=== PATIENT | female | born 1990 | race Caucasian/White ===

== ENCOUNTER 2017-07-21 09:20 | Emergency (ER) | payer SELFPAY ==
[~2017-07-21] VITALS: Ht 165.1 cm; Wt 65.3 kg
[~2017-07-21 09:20] MED LIST: MACROBID100 M1 PO; ZOFRAN ODT4 MG SL
[2017-07-21] MEDS ORDERED: SEPTDS PO (09:40)
== END 2017-07-21 11:48 | disposition left against medical advice (07) ==
LOC: ED 09:20
DX: L03.113 Cellulitis of right upper limb (principal)

== ENCOUNTER 2017-10-09 14:56 | Emergency (ER) | payer MEDICAID ==
[~2017-10-09] VITALS: Ht 165.1 cm; Wt 66.7 kg
[~2017-10-09 14:56] MED LIST changes: +SEPTDS PO
[2017-10-09 16:01] LABS: BASO % 0.2 % (0.0-1.0); EOS % 0.7 % (1.0-4.0); HEMATOCRIT 35.6 % (37.0-47.0); HEMOGLOBIN 12.2 g/dl (12.0-16.0); LYMPH # 1.1 10*3/uL (1.3-4.4); LYMPH % 24.4 % (27.0-41.0); MEAN CELL VOLUME 87.3 fl (81.0-99.0); MEAN CORPUSCULAR HGB 29.9 pg (27.0-31.0); MEAN CORPUSCULAR HGB CONC 34.3 g/dl (33.0-37.0); MEAN PLATELET VOLUME 10.5 fl (9.6-12.3); MONO # 0.4 10*3/uL (0.1-1.0); MONO % 8.1 % (3.0-9.0); NEUT # 2.9 10*3/uL (2.3-7.9); NEUT % 66.4 % (47.0-73.0); PLATELET COUNT AUTOMATED 99 10*3/uL (130-400); RED BLOOD COUNT 4.08 10*6/uL (4.10-5.10); RED CELL DISTRI WIDTH 13.6 % (0-14.5); WHITE BLOOD COUNT 4.4 10*3/uL (4.8-10.8)
[2017-10-09 16:20] LABS: ALBUMIN 3.3 gm/dl (3.1-4.5); ALKALINE PHOSPHATASE 37 U/L (45-117); BUN 7 mg/dl (7-24); CHLORIDE 107 mmol/L (98-107); CREATININE 0.51 mg/dL (0.55-1.02); LIPASE 68 U/L (73-393); SGOT/AST 84 IU/L (3-35); SGPT/ALT 144 U/L (12-78); SODIUM 138 mmol/L (136-145); TOTAL PROTEIN 7.3 gm/dL (6.4-8.2)
[2017-10-09 16:24] LABS: BILIRUBIN NEGATIVE (NEGATIVE); BLOOD NEGATIVE (NEGATIVE); CLARITY SL CLOUDY (CLEAR); COLOR YELLOW (YELLOW); GLUCOSE NEGATIVE (NEGATIVE); KETONE 1+ (NEGATIVE); LEUKO ESTERASE NEGATIVE (NEGATIVE); NITRITE NEGATIVE (NEGATIVE); PH 6.5 (5.0-9.0); SPECIFIC GRAVITY 1.015 (1.005-1.030); UROBILINOGEN 0.2 E.U./dl (0.2-1.0)
[2017-10-09 16:44] LABS: B-hCG (QUALITATIVE) POSITIVE (NEGATIVE)
[2017-10-09 16:46] LABS: BACTERIA 3+; EPITHELIAL CELLS 15-20; MUCOUS TRACE; RBC 0-2 rbc/hpf (0-2)
[2017-10-09] MEDS ORDERED: DICLEGIS DR 101 EACH PO (17:01)
[2017-10-09] MEDS ORDERED: PRENATAL ONE D1 EACH PO (17:01)
== END 2017-10-09 17:10 | disposition home or self-care (01) ==
LOC: ED 14:56
PROVIDERS: Physician Assistant
DX: O26.891 Other specified pregnancy related conditions, first trimester (principal); R10.30 Lower abdominal pain, unspecified; R10.2 Pelvic and perineal pain; O99.331 Smoking (tobacco) complicating pregnancy, first trimester; F17.200 Nicotine dependence, unspecified, uncomplicated; Z88.5 Allergy status to narcotic agent; Z3A.01 Less than 8 weeks gestation of pregnancy

== ENCOUNTER 2017-12-17 13:49 | Emergency (ER) | payer OTHER ==
[~2017-12-17] VITALS: Ht 162.5 cm; Wt 70.3 kg
[~2017-12-17 13:49] MED LIST changes: +DICLEGIS DR 101 EACH PO; +PRENATAL ONE D1 EACH PO
[2017-12-17 14:13] LABS: BILIRUBIN NEGATIVE (NEGATIVE); BLOOD 2+ (NEGATIVE); CLARITY SL CLOUDY (CLEAR); COLOR YELLOW (YELLOW); GLUCOSE NEGATIVE (NEGATIVE); KETONE NEGATIVE (NEGATIVE); LEUKO ESTERASE NEGATIVE (NEGATIVE); NITRITE NEGATIVE (NEGATIVE); PH 6.5 (5.0-9.0); SPECIFIC GRAVITY 1.015 (1.005-1.030); UROBILINOGEN 0.2 E.U./dl (0.2-1.0)
[2017-12-17 14:40] LABS: BACTERIA 1+; EPITHELIAL CELLS TNTC; RBC TNTC rbc/hpf (0-2); WBC 0-2 wbc/hpf (0-5)
[2017-12-17 14:55] LABS: EOS # 0.1 10*3/uL (0.0-0.4); EOS % 1.2 % (1.0-4.0); HEMATOCRIT 33.4 % (37.0-47.0); HEMOGLOBIN 11.7 g/dl (12.0-16.0); LYMPH # 1.1 10*3/uL (1.3-4.4); LYMPH % 20.3 % (27.0-41.0); MEAN CELL VOLUME 88.1 fl (81.0-99.0); MEAN CORPUSCULAR HGB 30.9 pg (27.0-31.0); MEAN PLATELET VOLUME 10.4 fl (9.6-12.3); MONO # 0.4 10*3/uL (0.1-1.0); MONO % 7.4 % (3.0-9.0); NEUT # 3.7 10*3/uL (2.3-7.9); NEUT % 70.7 % (47.0-73.0); PLATELET COUNT AUTOMATED 107 10*3/uL (130-400); RED BLOOD COUNT 3.79 10*6/uL (4.10-5.10); RED CELL DISTRI WIDTH 13.5 % (0-14.5); WHITE BLOOD COUNT 5.2 10*3/uL (4.8-10.8)
[2017-12-17 15:11] LABS: ALBUMIN 2.9 gm/dl (3.1-4.5); ALKALINE PHOSPHATASE 40 U/L (45-117); BUN 8 mg/dl (7-24); CHLORIDE 107 mmol/L (98-107); CREATININE 0.44 mg/dL (0.55-1.02); POTASSIUM 3.8 mmol/L (3.5-5.1); SGOT/AST 75 IU/L (3-35); SGPT/ALT 117 U/L (12-78); SODIUM 137 mmol/L (136-145)
[2017-12-17] MEDS ORDERED: AMINOPHYLLIN200 MG PO (16:11)
== END 2017-12-17 16:17 | disposition home or self-care (01) ==
LOC: ED 13:49
PROVIDERS: Physician Assistant
DX: O23.42 Unspecified infection of urinary tract in pregnancy, second trimester (principal); Z90.49 Acquired absence of other specified parts of digestive tract; Z79.899 Other long term (current) drug therapy; Z88.5 Allergy status to narcotic agent; Z3A.17 17 weeks gestation of pregnancy

== ENCOUNTER 2019-01-13 16:15 | Inpatient (IN) | payer OTHER ==
[~2019-01-13] VITALS: Ht 162.6 cm; Wt 63.6 kg
--- NOTE | ~2019-01-13 | EKG ---
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
[~2019-01-13 16:15] MED LIST changes: +AMINOPHYLLIN200 MG PO
--- NOTE | 2019-01-13 17:40 | NUR ---
PATIENT MEETS [facility]. CINA=18,CIWA(B)=26. PATIENT WANTS TO FOLLOW UP WITH [facility] FOR HER AFTERCARE PLAN. MARI OJEDA B.A. EDI CONSULTANT
--- NOTE | 2019-01-13 18:00 | NUR ---
A 28, admitted to , under the services of ROSALIA Maxwell DO with a diagnosis of Opiate Withdrawal. Chief complaint is Substance Abuse. Patient arrived via ambulatory from [place]. Monitor applied. Initial assessment completed. Vital signs taken and recorded. ROSALIA MAXWELL DO notified of admission to the unit. Orders received. See assessment for past medical history, medications and allergies. Patient and/or family oriented to unit. [address] visitation policy reviewed. Patient does not take prescription medications. Clothing/patient valuable form completed. CASEY SNEED
--- NOTE | 2019-01-13 18:19 | NUR ---
Notified Dr. Alcantara that lab was unable to obtain venous access. Patient states that the last time she had an IV (the of her son 7 mos ago) an anesthesiologist obtained a site in her neck.
[2019-01-13 20:00] VITALS: BP 114/80
--- NOTE | 2019-01-13 20:30 | NUR ---
CALL PHARM TO REDOSE SUBUTEX D/T URINES JUST NOW BEING SENT OUT AND TO RE-EVALUATE DOXY TABLET DUE TO 3 DOSES ARE PLACED FOR TOMORROW WHEN ITS ONLY Q12HR. MICHEL STATES HE WILL LOOK AT IT
[2019-01-13 20:49] LABS: BILIRUBIN 1+ (NEGATIVE); BLOOD TRACE-INTACT (NEGATIVE); CLARITY SL CLOUDY (CLEAR); COLOR YELLOW (YELLOW); GLUCOSE NEGATIVE (NEGATIVE); KETONE TRACE (NEGATIVE); LEUKO ESTERASE NEGATIVE (NEGATIVE); NITRITE NEGATIVE (NEGATIVE); SPECIFIC GRAVITY >= 1.030 (1.005-1.030)
[2019-01-13 20:55] LABS: URINE AMPHETAMINES < 1000 (1000ng/ml); URINE BARBITURATES < 200 (200ng/ml); URINE BENZODIAZEPINES < 200 (200ng/ml); URINE CANNABINOIDS (THC) < 50 (50ng/ml); URINE COCAINE < 300 (300ng/ml); URINE METHADONE < 300 (300ng/ml); URINE OPIATES > 300 (300ng/ml)
[2019-01-13 20:56] LABS: MUCOUS 3+
[2019-01-13 20:57] LABS: URINE PHENCYCLIDINE < 25 (25ng/ml); WBC 0-2 wbc/hpf (0-5)
--- NOTE | 2019-01-13 21:07 | NUR ---
PATIENT STATED THAT SHE DOES NOT WANT SUBUTEX AT THIS TIME STATES, "WHEN I TAKE IT RIGHT AFTER I STOP DRUGS, MY WITHDRAWALS ARE MORE INTENSE AND I JUST DON'T FEEL COMFORTABLE TAKING IT AT THIS TIME."
--- NOTE | 2019-01-13 22:01 | NUR ---
PATIENT MEDICATED FOR C/O WITHDRAWAL SYMPTOMS, SEE EMAR. WILL MONIOTR. NICOTINE PATCH PLACED TO RIGHT UPPER SHOULDER.
--- NOTE | 2019-01-13 23:01 | NUR ---
PRNs GIVEN FOR WITHDRAWAL SYMPTOMS WERE EFFECTIVE. NO COMPLAINTS
[2019-01-14] VITALS: BP 115/74
--- NOTE | 2019-01-14 00:53 | NUR ---
24 HR chart check completed.
--- NOTE | 2019-01-14 05:15 | NUR ---
PATIENT MEDICATED WITH PRNs AVAILABLE FOR C/O WITHDRAWAL SYMPTOMS, SEE EMAR. WILL MONITOR.
--- NOTE | 2019-01-14 07:21 | NUR ---
CHET BOSS [id number] Please refer to the physician's history and physical for past medical history, comorbid conditions, and allergies. Diagnosis: OPIATE WITHDRAWAL Salvador Score: 21,LOW OR NO RISK WOUND DESCRIPTIONS: Wound Number: 1 Location of the wound: right medial aspect of upper thigh Thickness: Partial Size: 0.4cm x 0.6cm x 0.1cm Tunneling: none Undermining: none Sinus Tract: none Presence of Exudate: none Amount: None Color: Red Odor: None Periwound Skin Appearance: Firmness 3.0cm x 2.5cm x 0.1cm, erythema, slight warmth Wound edges: approximated Pain (associated with wound): tender to touch and patient stated it can be tender when she walks How does patient state this happened? Pt stated this happened a couple days ago after she injected. Wound Number 2 & 3. 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 No redness surrounding areas no drainage at time of assessment. Surface the patient is resting on: Position Pro SKIN PREVENTION RECOMMENDATION: 1. Pressure redistribution support surface as appropriate 2. Elevate heels 3. Remove boots/TEDS every shift and reapply 4. Head of bed 30 degrees as tolerated 5. Assess nutrition and hydration 6. Manage moisture 7. Avoid the use of containment devices while in bed 8. Use absorptive products on surfaces limit layers of linens on bed 9. Turn and reposition every 1-2 hours in bed and every 1 hour in chair as tolerated 10. Weight shifts every 15 minutes while up in chair 11. Offloading with pillows or device to keep heels elevated off bed 12. Monitor skin at least every shift 13. Inspect under medical devices twice a day WOUND TREATMENT RECOMMENDATIONS: Warm compresses noted to right upper thigh. Imaging studies to right upper thigh to rule out abscess.
[2019-01-14 08:00] VITALS: BP 113/76
--- NOTE | 2019-01-14 08:57 | NUR ---
Patient states she is afraid to take Subutex because it puts her in full blown withdrawal.
--- NOTE | 2019-01-14 09:11 | NUR ---
Dr. Alcantara notified of wound care recommendations.
--- NOTE | 2019-01-14 12:19 | NUR ---
PR STAFF SPOKE WITH PATIENT CONCERNING HER AFTERCARE PLAN. PATIENT WANTS TO GO TO [facility] IN [place] FOR OUTPATIENT TREATMENT. PR STAFF REPORTED TO PATIENT THAT [facility] APPOINTMENT WOULD NOT BE UNTIL THURSDAY, February AT 9:30AM. PATIENT STILL WANTS TO KEEP THE APPOINTMENT. PR STAFF WILL PROVIDE PATIENT WITH A LIST OF AA/NA MEETINGS IN HER LOCAL AREA IN THE MEANTIME. MARI OJEDA B.A. TRUCK AND TRANSPORT MECHANIC
--- NOTE | 2019-01-14 12:30 | NUR ---
PRN Bentyl given for patient c/o abdominal cramping, Zofran given for c/o nausea, Robaxin given for c/o muscle spasms, Tylenol given for c/o achyness. Donna christine and crackers also given for stomach upset. Will monitor.
--- NOTE | 2019-01-14 13:15 | NUR ---
Prn Robaxin, Bentyl, Vistaril, Zofran and Tylenol effective. Patient states she doesn't feel great, but better than she did. Will continue to monitor and nursing comfort measure given.
[2019-01-14 16:00] VITALS: BP 87/55
--- NOTE | 2019-01-14 19:05 | NUR ---
REPORT OBTAINED FROM AMAN. PATIENT NOTCBLY AGITATED/ANXIOUS, JUST MEDICATED WITH PRNs AVAILABLE BY PRIOR NURSE. RESP ARE ERND ON ROOM AIR. BED IS LOCKED IN LOWEST POSITION. CALL LIGHT WITHIN REACH.
--- NOTE | 2019-01-14 19:16 | NUR ---
PRN Bentyl given per patient request for c/o stomach cramps, Zofran given for c/o nausea, Motrin given for c/o achyness, Vistaril given for obvious signs and c/o anxiety. Patient is also diaphoretic. Will monitor.
--- NOTE | 2019-01-14 19:20 | NUR ---
PATIENT NOTABLY MORE CALM AT THIS TIME. SHOWN WHERE THE SHOWER ROOM WAS. PATIENT INQUIRED ABOUT VISITATION, INFORMED THEY ARE 9AM-9PM. STATED UNDERSTANDING
[2019-01-14 20:40] VITALS: BP 112/62
--- NOTE | 2019-01-14 21:57 | NUR ---
PATIENT REQUESTED PRN MEDICATIONS SOON THEY WERE DUE EVEN IF SHE WAS ASLEEP. PATIENT VOICED CONCERNS OF HER SYMPTOMS GETTING TO BAD TO CONTROL IF SHE DIDN'T GET THEM. NO SIGNS OR SYMPTOMS OF DISTRESS AT THIS TIME. RESPIRATIONS EASY NONLABOURED ON ROOM AIR.
--- NOTE | 2019-01-14 23:57 | NUR ---
PATIENT RESTING EYES CLOSED. NO SIGNS OR SYMPTOMS OF DISTRESS. RESPIRATIONS EASY NONLABORED ON ROOM AIR.
[2019-01-15] VITALS: BP 106/60
--- NOTE | 2019-01-15 03:03 | NUR ---
PRN MEDICATIONS GIVEN FOR, MUSCLE SPASMS, PAIN AND NAUSEA. VOICES NO FURTHER CONCERNS. RESPIRATIONS EASY NONLABORED ON ROOM AIR. NO SIGNS OR SYMPTOMS OF DISTRESS.
--- NOTE | 2019-01-15 03:35 | NUR ---
PRN MEDICATION EFFECTIVE. PATIENT SLEEPING WITH NO SIGNS OR SYMPTOMS OF DISTRESS AT THIS TIME.
--- NOTE | 2019-01-15 03:55 | NUR ---
LYING IN BED EYES CLOSED, NO SIGNS OR SYMPTOMS OF DISTRESS. RESPIRATIONS EASY NONLABORED ON ROOM AIR.
--- NOTE | 2019-01-15 04:05 | NUR ---
24 HR chart check completed.
--- NOTE | 2019-01-15 05:10 | NUR ---
PATIENT REFUSED FOR BLOOD TO BE DRAWN FROM LABS.
--- NOTE | 2019-01-15 07:50 | NUR ---
Pt is upset demanding. States she is nauseated and having abdominal pain. Upset over subutex tapering, when it was started, states she wanted to wait 24 hours before starting subutex but it was marked that she refused it. States she couldn't take it it would have made withdrawal worse due to having heroin still in system. Wanting pain meds and zofran. Pt had these at 3 am. I explained to pt that she could have them again at 9 am. Pt is upset over this, demanding that I call the Dr to get her something for stomach. I spoke with Dr. Mckeon and he states he will speak with pt. I medicated pt with tylenol. Will continue to monitor.
[2019-01-15 08:00] VITALS: BP 132/100
[2019-01-15 08:47] LABS: BASO % 0.4 % (0.0-1.0); EOS # 0.1 10*3/uL (0.0-0.4); EOS % 2.2 % (1.0-4.0); HEMATOCRIT 44.1 % (37.0-47.0); HEMOGLOBIN 14.6 g/dl (12.0-16.0); LYMPH # 1.5 10*3/uL (1.3-4.4); LYMPH % 31.9 % (27.0-41.0); MEAN CELL VOLUME 90.7 fl (81.0-99.0); MEAN CORPUSCULAR HGB CONC 33.1 g/dl (33.0-37.0); MEAN PLATELET VOLUME 9.9 fl (9.6-12.3); MONO # 0.5 10*3/uL (0.1-1.0); MONO % 10.1 % (3.0-9.0); NEUT # 2.5 10*3/uL (2.3-7.9); NEUT % 55.2 % (47.0-73.0); PLATELET COUNT AUTOMATED 163 10*3/uL (130-400); RED BLOOD COUNT 4.86 10*6/uL (4.10-5.10); WHITE BLOOD COUNT 4.5 10*3/uL (4.8-10.8)
--- NOTE | 2019-01-15 08:47 | NUR ---
One time dose of phenergan given.
--- NOTE | 2019-01-15 09:10 | NUR ---
All available PRN's given to pt, pt states she is still experiencing nausea and abdominal pain/cramping. See emar for prn's given.
[2019-01-15 09:12] LABS: ALBUMIN 3.5 gm/dl (3.1-4.5); ALKALINE PHOSPHATASE 47 U/L (45-117); BUN 16 mg/dl (7-24); CHLORIDE 114 mmol/L (98-107); CREATININE 0.87 mg/dL (0.55-1.02); LIPASE 147 U/L (73-393); POTASSIUM 4.4 mmol/L (3.5-5.1); SGOT/AST 114 IU/L (3-35); SGPT/ALT 183 U/L (12-78); SODIUM 145 mmol/L (136-145); TOTAL PROTEIN 8.1 gm/dL (6.4-8.2)
--- NOTE | 2019-01-15 10:55 | NUR ---
Pt up in shower when Dr. Dumont was rounding.
--- NOTE | 2019-01-15 14:00 | NUR ---
Dr. Dumont in to see pt. Pt is in shower again.
--- NOTE | 2019-01-15 14:12 | NUR ---
Notified Dr. Dumont that pt is back in room.
--- NOTE | 2019-01-15 14:28 | NUR ---
Medicated with phenergan, reglan, bentyl and robaxin. Explained new orders to pt for these meds. Pt had small liquid emesis prior to meds being given.
--- NOTE | 2019-01-15 15:15 | NUR ---
Pt is currently sleeping when we rounded for bedside report. No distress noted.
[2019-01-15 16:00] VITALS: BP 134/77
--- NOTE | 2019-01-15 17:19 | NUR ---
NOTIFIED REGARDING PT ACTIVELY VOMITING AT THIS TIME. NEW ORDERS RECEIVED.
--- NOTE | 2019-01-15 17:44 | NUR ---
PT GIVEN PO BENTYL, ATIVAN, ZOFRAN AND REGLAN PER ORDER FOR C/O ABD CRAMPS AND NAUSEA/VOMITING. WILL MONITOR EFFECTIVENESS.
--- NOTE | 2019-01-15 18:45 | NUR ---
Patient resting. Responding to scheduled medications with fewer complaints of nausea and pain.
--- NOTE | 2019-01-15 19:30 | NUR ---
WAS SLEEPING AWAKEND ABD CRAMPING AND VOMITING LARGE AMOUNT EMESIS.
--- NOTE | 2019-01-15 19:40 | NUR ---
SPOKE WITH PATIENT. VERY ANXIOUS, LAYING ACROSSED BED, CRYING "I CAN'T DO THIS ANYMORE. WHY WOULD THEY START MY SUBUTEX TAPER IN THE MIDDLE. I NEED MY SUBUTEX, I CAN'T WAIT UNTIL 2 AM".
--- NOTE | 2019-01-15 19:45 | NUR ---
CALLED DR. HAM AND NOTIFIED HIM OF CONDITION, ABOUT TAPER AND MEDICATION GIVEN AND PATIENT WILL LEAVE IF SHE DOESN'T GET HER SUBUTEX NOW. ORDER RECEIVED NOT CHANGING SUBUTEX BUT CAN GIVE VISTARIL AND PHENERGAN NOW. TO SPEAK WITH PATIENT ABOUT PLAN OF CARE.
--- NOTE | 2019-01-15 19:53 | NUR ---
SPOKE WITH PATIENT ABOUT DRShadi NOT CHANGING SUBUTEX BUT WILL BE ABLE TO GIVE VISTARIL AND PHENERGAN. PATIENT UPSET INSTANTLY GOT UP AND SAID I CAN'T DO THIS, WHY WOULD THEY START YOU ON TAPE IN THE MIDDLE OF IT. I SHOULD'VE JUST CHEEKED THE SUBUTEX AND JUST KEPT IT UNTIL I NEEDED IT. I'LL JUST GO GET THE SUBUTEX I NEED OFF THE STREET. I'M SORRY I GUESS I DID THIS TO MYSELF BUT I DIDN'T THINK THE DOCTORS WOULD DO THAT." TRIED TO CONVIENCE PATIENT TO STAY BUT SHE WOULD NOT. AMA PAPER SIGNED AND PATIENT PACKED HER BELONGINGS AND LEFT. CALLED DR. HAM AND QA MANAGER AND NOTIFIED THEM BOTH OF AMA.
== END 2019-01-15 19:53 | disposition left against medical advice (07) | DRG 894 ==
LOC: 4E 16:15
PROVIDERS: Student in an Organized Health Care Education/Training Program; ADMIT Internal Medicine
DX: F11.23 Opioid dependence with withdrawal (principal); F41.9 Anxiety disorder, unspecified; F31.9 Bipolar disorder, unspecified; K59.00 Constipation, unspecified; F13.239 Sedative, hypnotic or anxiolytic dependence with withdrawal, unspecified; Z90.49 Acquired absence of other specified parts of digestive tract; F17.200 Nicotine dependence, unspecified, uncomplicated; Z88.9 Allergy status to unspecified drugs, medicaments and biological substances; Z79.899 Other long term (current) drug therapy; E87.8 Other disorders of electrolyte and fluid balance, not elsewhere classified

== ENCOUNTER 2019-05-26 10:09 | Emergency (ER) | payer OTHER ==
[~2019-05-26] VITALS: Ht 165.1 cm; Wt 61.2 kg
[2019-05-26 10:46] LABS: BILIRUBIN 3+ (NEGATIVE); BLOOD 3+ (NEGATIVE); CLARITY CLOUDY (CLEAR); GLUCOSE TRACE (NEGATIVE); KETONE 1+ (NEGATIVE); LEUKO ESTERASE TRACE (NEGATIVE); NITRITE POSITIVE (NEGATIVE); SPECIFIC GRAVITY 1.025 (1.005-1.030)
[2019-05-26 10:49] LABS: HEMATOCRIT 37.3 % (37.0-47.0); HEMOGLOBIN 12.6 g/dl (12.0-16.0); MEAN CELL VOLUME 89.2 fl (81.0-99.0); MEAN CORPUSCULAR HGB 30.1 pg (27.0-31.0); MEAN CORPUSCULAR HGB CONC 33.8 g/dl (33.0-37.0); MEAN PLATELET VOLUME 11.3 fl (9.6-12.3); PLATELET COUNT AUTOMATED 116 10*3/uL (130-400); RED BLOOD COUNT 4.18 10*6/uL (4.10-5.10); RED CELL DISTRI WIDTH 14.9 % (0-14.5); WHITE BLOOD COUNT 3.6 10*3/uL (4.8-10.8)
[2019-05-26 10:55] LABS: COLOR BROWN (YELLOW)
[2019-05-26 10:56] LABS: RBC TNTC rbc/hpf (0-2)
[2019-05-26 11:02] LABS: ACT PARTIAL THROMBO TIME 34.3 SECONDS (20.0-32.1); INTERNATIONAL NORM RATIO 1.1 (2.0-3.5)
[2019-05-26 11:06] LABS: ALKALINE PHOSPHATASE 111 U/L (45-117); BUN 7 mg/dl (7-24); CHLORIDE 107 mmol/L (98-107); CREATININE 0.77 mg/dL (0.55-1.02); LIPASE 148 U/L (73-393); POTASSIUM 3.5 mmol/L (3.5-5.1); SGOT/AST 977 IU/L (3-35); SODIUM 140 mmol/L (136-145); TOTAL PROTEIN 7.5 gm/dL (6.4-8.2)
[2019-05-26 11:11] LABS: BETA-HCG, QUANT < 1.0 mIU/mL (1-3); SGPT/ALT 2164 U/L (12-78)
[2019-05-26 11:12] LABS: ATYPICAL LYMPHS 2 % (0-0); PLATELET SUFFICIENCY NORMAL (NORMAL); TOTAL CELLS COUNTED 100 #CELLS
[2019-05-26] MEDS ORDERED: PHENERGAN25 M3 PO (14:41)
[2019-05-27 08:09] LABS: HEPATITIS B SURFACE AG Negative (Negative)
[2019-05-27 08:44] LABS: HEPATITIS C VIRUS ANTIBODY >11.0 s/co (0.0-0.9)
== END 2019-05-26 14:48 | disposition left against medical advice (07) ==
LOC: ED 10:09
PROVIDERS: Emergency Medicine
DX: R11.2 Nausea with vomiting, unspecified (principal); R94.5 Abnormal results of liver function studies; R10.84 Generalized abdominal pain; R19.7 Diarrhea, unspecified; R42 Dizziness and giddiness; F17.200 Nicotine dependence, unspecified, uncomplicated; Z88.5 Allergy status to narcotic agent; Z90.49 Acquired absence of other specified parts of digestive tract

== ENCOUNTER 2019-05-28 09:32 | Inpatient (IN) | payer OTHER ==
[~2019-05-28] VITALS: Ht 165.1 cm; Wt 57.4 kg
--- NOTE | ~2019-05-28 | PR ---
[place], [place] PROGRESS NOTE [id number] UN[facility] #: [id number] ROOM: 521 DOCTOR: ARTEMIO BETANCOURT,DECEMBER BIRTHDATE: [birth year] DOS: 05/29/2019 SUBJECTIVE: The patient has a chief complaint of hepatitis A as well as hepatitis C, the hepatitis C is chronic, hepatitis A is acute. She continues to have lot of complaints of nausea and has gagged herself per nursing. She also continues to have generalized abdominal pain. LFTs are improving. Had no fevers overnight. No diarrhea. LABORATORY DATA: WBCs 3.7, platelets 120. BUN 8, creatinine 0.75. AST 137, ALT 671. Total bilirubin 11.5. All of these are showing improvement. Albumin 2.4. Prior CT of the abdomen and pelvis from the reviewed demonstrating splenomegaly, otherwise unremarkable. CURRENT MEDICATIONS: Lovenox, morphine, Zofran, Phenergan, Toradol. PHYSICAL EXAMINATION: VITAL SIGNS: Temperature 98.4, pulse 56, respirations 20, BP 120/87. GENERAL: A 28-year-old female, in moderate distress, complaining of nausea and dry heaves. HEAD, EYES, EARS, NOSE AND THROAT: Normocephalic, no thrush. NECK: Supple. LUNGS: Clear to auscultation bilaterally. Respirations even and unlabored. HEART: Regular rhythm. No murmur appreciated. ABDOMEN: With generalized tenderness, soft. EXTREMITIES: No edema or deformity or cyanosis. SKIN: Warm, dry, jaundiced. ASSESSMENT: Acute hepatitis A; chronic hepatitis C; history of IV drug abuse, currently receiving morphine here. She had a positive hepatitis A IgM on the . She has not received treatment yet for her hepatitis C. She did have positive opiates tox screen on 01/13/2019, though she stated to me last night she had no opiates since 2017. PLAN: At this point, we discussed yesterday about her getting treatment for her chronic hepatitis C that this would be a possibility as an outpatient after her hepatitis A has resolved and if she is able to remain drug free. At this point, continue supportive care for her hepatitis A. Her LFTs and bilirubin are improving. JOY ASIA ULLOA [place], [place] PROGRESS NOTE NAME: CHET BOSS UNIT #: [id number] ROOM: 521 DOCTOR: ARTEMIO BETANCOURTDECEMBER BIRTHDATE: [birth year] Alysa Steele MD CM:PNRUSSELL [id number] DECEMBER ARTEMIO BETANCOURT 05/29/19 1728 interface
--- NOTE | ~2019-05-28 | CON ---
[place], [place] REPORT OF CONSULTATION NAME[facility]OSS [id number] UNIT #: [id number] ROOM: 521 DOCTOR: ARTEMIO BETANCOURT,DECEMBER BIRTHDATE: [birth year] DOS: 05/28/2019 CHIEF COMPLAINT: Hepatitis A and hepatitis C. HISTORY OF PRESENT ILLNESS: The patient is a 28-year-old female who was admitted with 4-day history of nausea, vomiting and abdominal pain. She had also had diarrhea. The diarrhea has since improved. She was seen in the Emergency Room on the with AST of 977 and an ALT of 2164. Serology has come back positive for hepatitis A IgM. She also had a positive hepatitis C antibody. She does have chronic hepatitis C. She has a prior history of IV drug abuse and states that she has been clean since 2016. She did not have a tox screen done at the time of this admission. 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 ID is consulted for acute hepatitis A as well as hepatitis B. Her labs are improving. AST today is down to 254, ALT is down to 1089. Again, her symptom onset was 4 days ago. The abdominal pain this evening is somewhat better than it was at the time of admission. Nausea and vomiting has also improved somewhat and she is requesting ice cream and has been holding down clear liquids. She had fevers and chills at home. She measured her temperature up to 101. Max temperature since admission, 99.1. She had originally refused admission on 05/26 due to needing to take care of her child. The child has not been ill, only the stools have been a little loose, but other than that, he has not been ill. [facility] and [facility] him vaccinated. She states her [id number] was sick recently, but she states "I also eat out a lot." PAST MEDICAL AND SURGICAL HISTORY: As above as well as anxiety. She denies any other prior medical history, but bipolar disorder is documented on her chart. She also has previously had pancreatitis and status post cholecystectomy. SOCIAL HISTORY: She is a smoker, half pack per day since she was 18 years old. Rarely drinks 1 beer. Denies any ongoing illicit drug use. Again, states she has been clean since 2016. She did have a history of prior IV drug abuse and opiates. FAMILY MEDICAL HISTORY: Mother of Grayson's disease at age of 57. Father with no significant past medical history. ALLERGIES: States OPIATE AGONISTS; however, she has a history of opiate abuse. LABORATORY DATA: WBCs 3.8, platelets 128. BUN 5, creatinine 0.78, sodium 140, AST 254, ALT 1089. C-reactive protein less than 0.29. Ammonia less than 10, albumin 3.0, total bilirubin 13.3. Urine culture from the 12th is sterile. REVIEW OF SYSTEMS: As above in history of present illness. No rashes, has been jaundiced for the last few days. Further review of systems is unremarkable other than as previously documented. PHYSICAL EXAMINATION: VITAL SIGNS: Temperature 99.1, pulse 69, respirations 18, BP 103/62. [place], [place] REPORT OF CONSULTATION NAME: CHET BOSS UNIT #: [id number] ROOM: 521 DOCTOR: ARTEMIO BETANCOURTDECEMBER BIRTHDATE: [birth year] GENERAL: 28-year-old female, in no acute distress. HEAD, EYES, EARS, NOSE AND THROAT: Normocephalic. Pupils equal and round. No thrush. NECK: Supple. LUNGS: Clear to auscultation bilaterally. Respirations even and unlabored. HEART: Regular rhythm. No murmur appreciated. ABDOMEN: Soft, nondistended. Tender right upper quad. EXTREMITIES: No edema, deformity or cyanosis. SKIN: Warm, dry, jaundiced, has multiple tattoos to left upper extremity. ASSESSMENT: Acute hepatitis A superimposed on chronic hepatitis C. Her LFTs are improving as well as her symptoms are improving. PLAN: We discussed that receiving treatment at some point for her hepatitis C given that she is no longer after her acute hepatitis A results. If her tox screens are clean, she did have a tox screen in the computer from January which was positive for opiates, continue supportive treatment. We discussed pathogenesis and transmissibility of hepatitis A. Thank you for the consultation. JOY ASIA ULLOA Alysa Steele MD CM:CONSTR:REPORT OF CONSULTATION 14 05/28/192133 interface
--- NOTE | ~2019-05-28 | CON ---
[place], [place] REPORT OF CONSULTATION NAME: CHET BOSS UNIT #: [id number] ROOM: 521 DOCTOR: ALYSA STEELE MD BIRTHDATE: [birth year] DOS: 05/28/2019 ADDENDUM This is an addendum to the consult note done by the nurse practitioner, Karine Salvador. I agree with the assessment and plan, reviewed the labs and imaging, made the necessary changes in the note. Alysa Steele MD CM:CONSTR:REPORT OF CONSULTATION 1522 06/04/19 0203 interface
--- NOTE | ~2019-05-28 | PR ---
[place], [place] PROGRESS NOTE NAME: [facility]OSS [facility] [id number] UNIT #: [id number] ROOM: 521 DOCTOR: ALYSA STEELE MD BIRTHDATE: [birth year] DOS: 05/29/2019 ADDENDUM This is an addendum to the progress note done by the nurse practitioner, Karine Salvador. I reviewed the labs and imaging, made the necessary changes in the note. Alysa Steele MD CM:PNTRANS 1523 ALYSA STEELE MD 06/04/19 0206 interface
[~2019-05-28 09:32] MED LIST changes: +PHENERGAN25 M3 PO
[2019-05-28 09:33] VITALS: BP 135/87
[2019-05-28 10:10] LABS: BASO % 0.3 % (0.0-1.0); EOS % 0.3 % (1.0-4.0); HEMATOCRIT 36.4 % (37.0-47.0); HEMOGLOBIN 12.2 g/dl (12.0-16.0); LYMPH % 25.7 % (27.0-41.0); MEAN CELL VOLUME 89.2 fl (81.0-99.0); MEAN CORPUSCULAR HGB 29.9 pg (27.0-31.0); MEAN CORPUSCULAR HGB CONC 33.5 g/dl (33.0-37.0); MEAN PLATELET VOLUME 11.5 fl (9.6-12.3); MONO # 0.2 10*3/uL (0.1-1.0); MONO % 5.8 % (3.0-9.0); NEUT # 2.6 10*3/uL (2.3-7.9); NEUT % 67.6 % (47.0-73.0); PLATELET COUNT AUTOMATED 128 10*3/uL (130-400); RED BLOOD COUNT 4.08 10*6/uL (4.10-5.10); RED CELL DISTRI WIDTH 15.2 % (0-14.5); WHITE BLOOD COUNT 3.8 10*3/uL (4.8-10.8)
[2019-05-28 10:21] LABS: ACT PARTIAL THROMBO TIME 31.3 SECONDS (20.0-32.1); INTERNATIONAL NORM RATIO 1.1 (2.0-3.5)
[2019-05-28 10:29] LABS: ALKALINE PHOSPHATASE 107 U/L (45-117); BUN 5 mg/dl (7-24); CHLORIDE 112 mmol/L (98-107); CREATININE 0.78 mg/dL (0.55-1.02); POTASSIUM 3.6 mmol/L (3.5-5.1); SGOT/AST 254 IU/L (3-35); SODIUM 140 mmol/L (136-145); TOTAL PROTEIN 7.6 gm/dL (6.4-8.2)
[2019-05-28 10:32] LABS: B-hCG (QUALITATIVE) NEGATIVE (NEGATIVE)
[2019-05-28 10:38] LABS: SGPT/ALT 1089 U/L (12-78)
[2019-05-28 12:30] VITALS: BP 121/79
--- NOTE | 2019-05-28 12:35 | NUR ---
UPON ARRIVAL FROM ED. PATIENT IS PURPOSELY GAGGING SELF BY STICKING HAND DOWN THROAT TO HAVE AN EMESIS
--- NOTE | 2019-05-28 12:35 | NUR ---
Time: 1234 A 28 year old FEMALE admitted to under services of TAVO TOMLINSON DO. Pt. arrived via bed from [place]. Chief complaint: NAUSEA/VOMITING AND ABDOMINAL PAIN.. AKIRA VEGA
--- NOTE | 2019-05-28 12:40 | NUR ---
PATIENT IS REFUSING TO ANSWER SOME ADMISSION QUESTIONS/SKIN ASSESSMENT. PATINET IS TOO IRRITATED FROM NAUSEA AND PAIN. SCHEDULE ZOFRAN WAS GIVEN.
--- NOTE | 2019-05-28 12:52 | NUR ---
INFORMED THAT PATIENT IS HERE AND STATES SHE TAKES NO HOME MEDS. INFORMED THAT PATIENT IS IN 06/23 ABDOMEN PAIN WITH TORADOL ONLY GIVEN LESS THEN 2HRS AGO. DR. LOWES UNABLE TO DO ANYTHING AT THIS TIME, PATIENT IS REFUSING ALL NARCOTICS D/T OPIATE HX ABUSE. WILL CONTINUE TO MONITOR
--- NOTE | 2019-05-28 13:07 | NUR ---
PATIENT FOUND TO BE GAGGING SELF AGAIN BY NURSING STAFF TO HAVE EMESIS. PATIENT IS ALSO ASKING FOR LIQUIDS AT THIS TIME.
--- NOTE | 2019-05-28 13:25 | NUR ---
PATIENT MEDICATED WITH IV ATIVAN AND IV PHENERGAN FOR NAUSEA/EMESIS AND AGITATION. WILL MONITOR
--- NOTE | 2019-05-28 13:25 | NUR ---
PATIENT MEDICATED WITH 1MG IV ATIVAN FOR AGITATION.
--- NOTE | 2019-05-28 13:31 | NUR ---
PATIENT STATED AT THIS TIME SHE NEEDS PAIN MEDICATION AND IS WILL ING TO USE OPIOIDS TO DECREASE PAIN, PATIENT STATED SHE DOES NOT HAVE A RPEFERENCE AT THIS POINT. DR. LOWE MADE AWARE, STATED HE WILL PLACE ORDERS FOR MORPHINE
--- NOTE | 2019-05-28 14:01 | NUR ---
PATIENT MEDICATED WITH MORPHINE FRO C.O 10/10 ABDOMEN PAIN. WILL MONITOR
--- NOTE | 2019-05-28 14:25 | NUR ---
PATIENTS NAUSEA AND AGITATION IS EASING UP AFTER PAIN MEDICATIONG WAS ADMINISTER. ATIVAN AND PHENERAGAN SOMEWHAT EFFECTIVE
--- NOTE | 2019-05-28 14:45 | NUR ---
K-PAD ORDERED, OK'D. PATIENT HAS HEATING PAD FROM HOME, UNABLE TO USE HERE D/T FIRE HAZARD PATIENT AWARE NOT TO USE.
--- NOTE | 2019-05-28 14:57 | NUR ---
ATTEMPT TO CALL AT THIS TIME, PHONE WENT STRAIGHT TO VOICEMAIL. MESSAGE LEFT IN REGARDS TO NEW CONSULT, INFORMED TO CALL WHEN POSSIBLE,
--- NOTE | 2019-05-28 15:01 | NUR ---
MORPHINE APPEARS EFFCTIVE. PATIENT IS RESTING QUIETLY IN BED, RESTING WITH EYES CLOSED. NO DISTRESSN NOTED, RESP ARE ERND ON ROOM AIR. CALL LIGHT WITHIN REACH
--- NOTE | 2019-05-28 15:02 | NUR ---
INFECTIOUS DISEASE OFFICE CALLED AND AWARE OF CONSULT. STATED THEY WOULD SEND MESSAGE.
[2019-05-28 16:00] VITALS: BP 97/77
--- NOTE | 2019-05-28 16:20 | NUR ---
PATIENT HAD ANOTHER EMESIS, BROWN LIQUID OF 80CC.
--- NOTE | 2019-05-28 17:06 | NUR ---
PATIENT MEDICATED WITH TORADOL FOR C/O 10 ABDOMEN PAIN. WILL MONITOR
--- NOTE | 2019-05-28 18:06 | NUR ---
TORADOL APPEARS EFFECTIVE. PATIENT RESTING IN BED QUIETLY, EYES CLOSED. NO DISTRESS NOTED. CALL LIGHT WITHIN REACH
--- NOTE | 2019-05-28 19:51 | NUR ---
PATIENT MEDICATED WITH MORPHINE FOR C/O 03/23 ABDOMINAL PAIN. STATES THE PAIN IS BECOMING MORE MANAGABLE BUT STILL "LURKING". WILL CONINTUE TO MONITOR
[2019-05-28 20:00] VITALS: BP 103/62
--- NOTE | 2019-05-28 20:00 | NUR ---
PATIENT AND SIGN. OTHER INQUIRE VISITING HOURS. INFORM THAT THAT ARE 9-9. PATIENT UPSET THAT FAMILY CANNOT STAY. INFORMED THAT IT WAS POLICY AND FAMILY MEMBER STATED UNDERSTANDING.
--- NOTE | 2019-05-28 20:51 | NUR ---
MORPHINE APPEARS EFFECTIVE. PATIENT RESTING IN BED QUIETLY, EYES CLOSED. NO DISTRES SNOTED. CALL LIGHT LEFT WITHIN REACH.
[2019-05-29 04:00] VITALS: BP 120/87
[2019-05-29 06:42] LABS: EOS % 0.8 % (1.0-4.0); HEMATOCRIT 31.5 % (37.0-47.0); HEMOGLOBIN 10.6 g/dl (12.0-16.0); LYMPH # 1.1 10*3/uL (1.3-4.4); LYMPH % 29.6 % (27.0-41.0); MEAN CELL VOLUME 89.7 fl (81.0-99.0); MEAN CORPUSCULAR HGB 30.2 pg (27.0-31.0); MEAN CORPUSCULAR HGB CONC 33.7 g/dl (33.0-37.0); MEAN PLATELET VOLUME 11.4 fl (9.6-12.3); MONO # 0.3 10*3/uL (0.1-1.0); MONO % 7.1 % (3.0-9.0); NEUT # 2.3 10*3/uL (2.3-7.9); NEUT % 62.5 % (47.0-73.0); PLATELET COUNT AUTOMATED 120 10*3/uL (130-400); RED BLOOD COUNT 3.51 10*6/uL (4.10-5.10); RED CELL DISTRI WIDTH 15.6 % (0-14.5); WHITE BLOOD COUNT 3.7 10*3/uL (4.8-10.8)
[2019-05-29 06:51] LABS: ALBUMIN 2.4 gm/dl (3.1-4.5); BUN 8 mg/dl (7-24); CHLORIDE 110 mmol/L (98-107); CREATININE 0.75 mg/dL (0.55-1.02); POTASSIUM 3.5 mmol/L (3.5-5.1); SGOT/AST 137 IU/L (3-35); SGPT/ALT 671 U/L (12-78); SODIUM 143 mmol/L (136-145); TOTAL PROTEIN 6.2 gm/dL (6.4-8.2)
[2019-05-29 07:01] LABS: ALKALINE PHOSPHATASE 85 U/L (45-117)
[2019-05-29 08:00] VITALS: BP 125/76
--- NOTE | 2019-05-29 11:55 | NUR ---
MORPHINE 1MG IV GIVEN PER PATIENT REQUEST. PATIENT IS STICKING HER FINGERS DOWN HER THROAT CAUSING HERSELF TO VOMIT. ASKED TO STOP. REFUSES TO STOP AT THIS TIME. STATES THAT IT MUST "COME OUT".
[2019-05-29 12:00] VITALS: BP 120/87
--- NOTE | 2019-05-29 14:11 | NUR ---
TORADOL IV GIVEN PER PATIENT REQUEST FOR ABDOMINAL PAIN.
[2019-05-29 16:00] VITALS: BP 129/67
--- NOTE | 2019-05-29 16:22 | NUR ---
PT COMPLAINS OF ABDOMINAL PAIN RATED AT A 7. PRN MORPHINE ADMINISTERED AT THIS TIME. WILL MONITOR FOR EFFECTIVENESS.
--- NOTE | 2019-05-29 19:20 | NUR ---
PT COMPLAINS OF NAUSEA AT THIS TIME. PRN PHENERGAN ADMINSTERED. WILL MONITOR FOR EFFECTIVENESS.
--- NOTE | 2019-05-29 19:45 | NUR ---
PT COMPLAINS OF ABDOMINAL PAIN RATED AT A 9. PRN MORPHINE ADMINISTERED AT THIS TIME. WILL MONITOR FOR EFFECTIVENESS.
--- NOTE | 2019-05-29 21:00 | NUR ---
PT ASLEEP. PRN PHENERGAN AND MORPHINE CONSIDERED EFFECTIVE.
--- NOTE | 2019-05-29 23:41 | NUR ---
PATIENT REQUESTING PAIN MEDICATION FOR ABDOMINAL PAIN RATED 7/10 ON 0/10 SCALE. MORPHINE ADMINISTERED PRESCRIBED. WILL MONITOR FOR EFFECTIVENESS.
[2019-05-30] VITALS: BP 110/59
--- NOTE | 2019-05-30 00:41 | NUR ---
PATIENT RESTING WITH EYES CLOSED AT THIS TIME. RATES ABDOMINAL PAIN 5/10 ON 0/10 SCALE. WILL CONTINUE TO MONITOR.
--- NOTE | 2019-05-30 03:30 | NUR ---
PATIENT REQUESTING PAIN MEDICATION FOR ABDOMINAL PAIN RATED 8/10 ON 0/10 SCALE. MORPHINE ADMINISTERED PRESCRIBED. WILL MONITOR FOR EFFECTIVENESS.
--- NOTE | 2019-05-30 04:00 | NUR ---
PATIENT RESTING WITH EYES CLOSED. RESPIRATIONS EASY AND UNLABORED. CALL MERCER WITHIN REACH. WILL MONITOR.
--- NOTE | 2019-05-30 04:17 | NUR ---
PATIENT RESTING IN BED. PATIENT AWAKE OFF AND ON. EDUCATED PATIENT ON THE IMPORTANCE OF NOT GETTING WRAPPED UP IN IV TUBING DUE TO IT BEING CONNECTED TO HER RIGHT IJ IV ACCESS. CALL LIGHT WITHIN REACH. WILL MONITOR.
[2019-05-30 07:17] LABS: EOS % 0.3 % (1.0-4.0); HEMATOCRIT 30.8 % (37.0-47.0); HEMOGLOBIN 10.3 g/dl (12.0-16.0); LYMPH # 0.9 10*3/uL (1.3-4.4); LYMPH % 23.4 % (27.0-41.0); MEAN CELL VOLUME 89.5 fl (81.0-99.0); MEAN CORPUSCULAR HGB 29.9 pg (27.0-31.0); MEAN CORPUSCULAR HGB CONC 33.4 g/dl (33.0-37.0); MEAN PLATELET VOLUME 11.5 fl (9.6-12.3); MONO # 0.3 10*3/uL (0.1-1.0); MONO % 6.9 % (3.0-9.0); NEUT # 2.7 10*3/uL (2.3-7.9); NEUT % 68.9 % (47.0-73.0); PLATELET COUNT AUTOMATED 129 10*3/uL (130-400); RED BLOOD COUNT 3.44 10*6/uL (4.10-5.10); RED CELL DISTRI WIDTH 15.7 % (0-14.5); WHITE BLOOD COUNT 3.9 10*3/uL (4.8-10.8)
[2019-05-30 07:44] LABS: ALBUMIN 2.6 gm/dl (3.1-4.5); ALKALINE PHOSPHATASE 81 U/L (45-117); BUN 13 mg/dl (7-24); CHLORIDE 111 mmol/L (98-107); CREATININE 0.71 mg/dL (0.55-1.02); POTASSIUM 3.5 mmol/L (3.5-5.1); SGOT/AST 96 IU/L (3-35); SGPT/ALT 506 U/L (12-78); SODIUM 143 mmol/L (136-145); TOTAL PROTEIN 6.6 gm/dL (6.4-8.2)
[2019-05-30 07:45] LABS: INTERNATIONAL NORM RATIO 1.1 (2.0-3.5)
[2019-05-30 08:00] VITALS: BP 120/68
--- NOTE | 2019-05-30 10:00 | NUR ---
WALKED TO DESK. WANTS TO LEAVE AMA. DR. ADAMS NOTIFIED.
--- NOTE | 2019-05-30 10:25 | NUR ---
DISCUSSED LEAVING AMA. SHE HAS AGREED TO STAY. MEDICATED WITH TORADOL 15MG IV ORDERED FOR COMPLAINTS OF ABDOMINAL PAIN. RATES PAIN A 7 ON A PAIN SCALE OF 1-10
[2019-05-30] MEDS ORDERED: Motrin,Rufen800 MG PO (10:50)
[2019-05-30] MEDS ORDERED: PHENERGAN25 M3 PO (10:50)
--- NOTE | 2019-05-30 11:30 | NUR ---
Discharge instructions reviewed with patient/family. Patient receptive and verbalizes understanding. Follow-up care arranged. Written instructions given to patient/family. LUIS FELIPE HERNANDEZ
== END 2019-05-30 12:33 | disposition home or self-care (01) | DRG 442 ==
LOC: ED 09:32 → EDHOLD 10:56 → 5E 10:56
PROVIDERS: Internal Medicine; Student in an Organized Health Care Education/Training Program; ADMIT Emergency Medicine
PROC: 05HY33Z Insertion of Infusion Device into Upper Vein, Percutaneous Approach (ICD-10-PCS; principal; 2019-05-28)
PROC: B54MZZA Ultrasonography of Right Upper Extremity Veins, Guidance (ICD-10-PCS; 2019-05-28)
DX: B15.9 Hepatitis A without hepatic coma (principal); E44.0 Moderate protein-calorie malnutrition; R74.0 Nonspecific elevation of levels of transaminase and lactic acid dehydrogenase [LDH]; D72.819 Decreased white blood cell count, unspecified; F41.9 Anxiety disorder, unspecified; F17.200 Nicotine dependence, unspecified, uncomplicated; E87.8 Other disorders of electrolyte and fluid balance, not elsewhere classified; E80.6 Other disorders of bilirubin metabolism; D69.6 Thrombocytopenia, unspecified; F17.210 Nicotine dependence, cigarettes, uncomplicated; R76.8 Other specified abnormal immunological findings in serum; R73.9 Hyperglycemia, unspecified; B18.2 Chronic viral hepatitis C; F31.9 Bipolar disorder, unspecified; Z90.49 Acquired absence of other specified parts of digestive tract; Z71.6 Tobacco abuse counseling; Z68.21 Body mass index [BMI] 21.0-21.9, adult